=== PATIENT | male | born 1955 | race Caucasian/White ===

== ENCOUNTER 2017-08-29 09:48 | Day surgery (SDC) | payer OTHER ==
[2017-08-26 11:28] VITALS: BMI 30.7
[2017-08-29 10:40] VITALS: BP 135/89; TEMP 97.6
--- NOTE | 2017-08-29 12:02 | ULT ---
ULTRASOUND GUIDED FINE NEEDLE ASPIRATION AND CORE BIOPSY OF RIGHT JUGULAR CHAIN LYMPH NODE: History: An approximately 2.5 cm necrotic appearing node noted on CT done at [facility]. Patient has a history of hepatitis C from the and HIV from 1991. Patient has noted this enlarged palpable abnormality from several months. FINDINGS: After informed consent was obtained, the patient was prepped and draped in normal sterile fashion. Lo myles anesthesia is obtained with 1% Xylocaine mixed with sodium bicarb. A total of 3 fine needle aspir ations were performed with 25 gauge needle and subsequently a single core biopsy was performed using a 20 gauge Tim[place] needle. Pathology indicated adequacy. Patient tolerated the procedure well. There we re no immediate complications. IMPRESSION: Successful biopsy of necrotic appearing 2.5 cm right jugular chain node. No immediate complications o f the procedure. POS: ALESSIO
== END 2017-08-29 11:30 | disposition home or self-care (01) ==
LOC: ULT 09:48
PROVIDERS: ATTEND Otolaryngology Plastic Surgery within the Head & Neck
PROC: 07D13ZX Extraction of Right Neck Lymphatic, Percutaneous Approach, Diagnostic (ICD-10-PCS; principal; 2017-08-29)
DX: R59.0 Localized enlarged lymph nodes (principal); Z21 Asymptomatic human immunodeficiency virus [HIV] infection status; Z79.52 Long term (current) use of systemic steroids; Z79.2 Long term (current) use of antibiotics; Z79.899 Other long term (current) drug therapy; Z88.6 Allergy status to analgesic agent; Z86.19 Personal history of other infectious and parasitic diseases
CPT/HCPCS: 10022; 76942; 88173; 88184; 88305; 88312; 88333

== ENCOUNTER 2017-09-21 06:35 | Day surgery (SDC) | payer OTHER ==
[2017-09-20 14:55] VITALS: BMI 30.8
[2017-09-21] MEDS ORDERED: Lidocaine 1% w/Epinephrine 1:200K 30 ML VIAL ONE (09:08)
[2017-09-21] MEDS ORDERED: Fentanyl 100 MCG/2 ML VIAL ONE ×2 (09:09)
[2017-09-21] MEDS ORDERED: Midazolam HCl 2 mg/2 ml Vial ONE (09:09)
[2017-09-21] MEDS ORDERED: Bacitracin Zinc Ointment 30 gm TUBE ONE (09:13)
[2017-09-21] MEDS ORDERED: ePHEDrine/0.9% NaCl/PF SYRINGE 50 mg/10 ml ONE (14:42)
[2017-09-21] MEDS ORDERED: PHENYLEPHRINE-NS 100 MCG/ML 10 ML SYRINGE ONE (14:42)
[2017-09-21] MEDS ORDERED: Dexamethasone 20 MG/5 ML VIAL ONE (14:42)
[2017-09-21] MEDS ORDERED: Glycopyrrolate 0.2 MG/ML 5 ML SYRINGE ONE ×2 (14:42)
[2017-09-21] MEDS ORDERED: PROPOFOL 200 MG/20 ML VIAL ONE (14:42)
[2017-09-21] MEDS ORDERED: Lidocaine 1% PF 5 ML VIAL ONE (14:42)
--- NOTE | 2017-09-22 03:16 | OP ---
PREOPERATIVE DIAGNOSIS: Right neck mass/cervical lymphadenopathy. POSTOPERATIVE DIAGNOSIS: Right neck mass/cervical lymphadenopathy. PROCEDURE: Excisional biopsy of right deep neck lymph node. SURGEON: Tom Oconnor M.D. ESTIMATED BLOOD LOSS: Less than 5 mL. COMPLICATIONS: None. ANESTHESIA: GETA. PROCEDURE IN DETAIL: The patient taken to the operating room and placed supine on the table. Genera l endotracheal anesthesia obtained by the Anesthesia staff. Tube was secured in the left lower lip. The patient was then prepped and draped in standard surgical fashion. An incision overlying the rig ht level 3 and was made in a horizontal fashion with a 15 blade. Subplatysmal flaps were elevated kowalski periorly and inferiorly. The lymph node and mass was identified and was noted to be immediately carla cent to the jugular vein. Dissection was carried medially down to this lymph node. It was in betwee n 2.5 cm to 3 cm firm calcified and a necrotic lymph node, dissection was then carried out in this ar ea removing it from the fascia of the jugular vein. Following this, the wound was closed using Monoc ryl stitches for the investing fascia as well as the platysmal layer and subcutaneous layer. Skin wa s closed using Dermabond. The patient tolerated the procedure well.
== END 2017-09-21 13:02 | disposition home or self-care (01) ==
LOC: SDC 06:35
PROVIDERS: ATTEND Otolaryngology Plastic Surgery within the Head & Neck
PROC: 07B10ZX Excision of Right Neck Lymphatic, Open Approach, Diagnostic (ICD-10-PCS; principal; 2017-09-21)
DX: C96.9 Malignant neoplasm of lymphoid, hematopoietic and related tissue, unspecified (principal); J35.1 Hypertrophy of tonsils; J34.2 Deviated nasal septum; Z88.8 Allergy status to other drugs, medicaments and biological substances
CPT/HCPCS: 88184; 88305; 93005; 93010; J1100; J2001; J2250; J2704; J3010

== ENCOUNTER 2017-10-05 07:26 | Day surgery (SDC) | payer OTHER ==
[2017-10-04 13:09] VITALS: BMI 29.9
[2017-10-05 08:42] LABS: Anion Gap 12 mmol/L (10-20); BUN (Urea Nitrogen) 21 mg/dL (8.4-25.7); Calc. Creatinine Clearance 93 mL/min (70-130); Carbon Dioxide 23 mmol/L (22-29); Chloride 108 mmol/L (98-107); Estimated GFR-MDRD 64; Glucose 94 mg/dL (70-105); Potassium 4.6 mmol/L (3.5-5.1); Sodium 138 mmol/L (136-145)
[2017-10-05] MEDS ORDERED: Ondansetron HCl/PF 4 MG/2 ML Vial ONE ×2 (09:24→12:20)
[2017-10-05] MEDS ORDERED: Midazolam HCl 2 mg/2 ml Vial ONE (09:24)
[2017-10-05] MEDS ORDERED: Fentanyl 100 MCG/2 ML VIAL ONE (09:24)
[2017-10-05] MEDS ORDERED: Propofol 500 MG/50 ML VIAL ONE (09:24)
[2017-10-05] MEDS ORDERED: EPINEPHrine 1 MG/ML AMP ONE (09:45)
[2017-10-05] MEDS ORDERED: Succinylcholine Chloride 20 MG/ML 10 ml SYRINGE FS ONE (12:20)
[2017-10-05] MEDS ORDERED: Lidocaine 1% PF 5 ML VIAL ONE (12:20)
[2017-10-05] MEDS ORDERED: PROPOFOL 200 MG/20 ML VIAL ONE (12:20)
[2017-10-05] MEDS ORDERED: Dexamethasone 20 MG/5 ML VIAL ONE (12:20)
--- NOTE | 2017-10-06 12:46 | OP ---
PREOPERATIVE DIAGNOSES: 1. Metastatic squamous cell carcinoma, right neck. 2. Tonsil hypertrophy. 3. Tobacco abuse. POSTOPERATIVE DIAGNOSES: 1. Metastatic squamous cell carcinoma, right neck. 2. Tonsil hypertrophy. 3. Tobacco abuse. PROCEDURES: 1. Direct laryngoscopy with biopsies. 2. Bilateral tonsillectomy. SURGEON: Tom Oconnor M.D. ESTIMATED BLOOD LOSS: 0 mL COMPLICATIONS: None. ANESTHESIA: GETA. PROCEDURE IN DETAIL: The patient was taken to the operating room and placed supine on the table. Ge neral endotracheal anesthesia was obtained by the Anesthesia staff. The Dedo laryngoscope was then i ntroduced in the oral cavity. The mucosa of the oral cavity and oropharynx was examined and they jing eared to be within normal limits. There was some mildly raddy tissue on the posterior pillar of the right tonsil also this area extended slightly inferiorly. This was biopsied using straight cups forc eps following this, the patient tongue was examined as well as the piriform sinuses, vallecula, postc ricoid mucosa, and the vocal cords, which were noted to be within normal limits. The nasopharyngeal mirror was then used to visualize the nasopharynx, which was clear of any lesions. Following this, a curved Allis clamp was used to grasp the tonsils bilaterally and medialize the tonsil and a subcapsu lar tonsillectomy was performed. The patient tolerated the procedure well.
== END 2017-10-05 13:00 | disposition home or self-care (01) ==
LOC: SDC 07:26
PROVIDERS: ATTEND Otolaryngology Plastic Surgery within the Head & Neck
PROC: 0CTPXZZ Resection of Tonsils, External Approach (ICD-10-PCS; principal; 2017-10-05)
PROC: 0CBM8ZX Excision of Pharynx, Via Natural or Artificial Opening Endoscopic, Diagnostic (ICD-10-PCS; principal; 2017-10-05)
DX: C09.9 Malignant neoplasm of tonsil, unspecified (principal); J35.1 Hypertrophy of tonsils; F17.200 Nicotine dependence, unspecified, uncomplicated; K76.9 Liver disease, unspecified; Z88.8 Allergy status to other drugs, medicaments and biological substances; Z21 Asymptomatic human immunodeficiency virus [HIV] infection status
CPT/HCPCS: 80048; 88304; 88307; J0171; J2250; J2405; J2704; J3010